=== PATIENT | male | born 1960 | race Two or more races ===

== ENCOUNTER 2024-03-04 23:46 | Emergency (ER) | payer BC ==
[~2024-03-04] VITALS: Ht 193 cm; Wt 90.7 kg
[2024-03-05] MEDS ORDERED: VALSARTAN320 MG PO (00:12)
[2024-03-05] MEDS ORDERED: DILTIAZEM ER120 M2 (00:13)
[2024-03-05] MEDS ORDERED: KETOROLAC TROMETHAMINE 60 MG VIAL IM STA (01:30)
[2024-03-05] MEDS ORDERED: OxyCODONE HCL/APAP UD (PERCOCET) PO STA (01:31)
== END 2024-03-05 04:35 | disposition home or self-care (01) ==
LOC: ER 23:48
DX: M79.672 Pain in left foot (principal)